=== PATIENT | female | born 1955 | race Caucasian/White ===

== ENCOUNTER 2021-07-26 13:58 | Emergency (ER) | payer OTHER, SELFPAY ==
[2021-07-26 14:06] VITALS: BP 131/87; PULSE 85; RESP 16; TEMP 36.6; O2SAT 99
--- NOTE | 2021-07-26 14:38 | ED.SKABFB ---
HPI - Skin/Abscess/Foreign Bdy General Chief complaint: Skin/Abscess/Foreign Body Stated complaint: INSECT BITE Source: patient and RN notes reviewed Mode of arrival: ambulatory History of Present Illness HPI narrative: This is a 66-year-old female who presented to urgent care with complaints of pain and redness to her right thigh status post insect bite. According to patient she or her pants this morning when she felt a possible insect bite to her right inner thigh. She immediately removed her pants but could not find a insect. She said at the site became swollen and reddened and hot to touch she did apply Neosporin and took a few amoxicillin that she had at home. The patient denies SOB, CP, palpitation, extremity numbness, lightheadedness, dizziness, constipation, diarrhea, chills, or fever. Related Data Allergies Allergy/AdvReac Type Severity Reaction Status Date / Time erythromycin base Allergy Mild Verified 02/03/17 06:56 Review of Systems Review of Systems: A 14 organ system Review of Systems was performed and pertinent positives included in the HPI, otherwise remaining ROS is negative. [facility] Family History Family History (Updated 07/26/21 @ 14:40 by CHARLOTTE Hopkins-C) Other Family history non-contributory Malignant neoplasm of prostate Exam Narrative: GENERAL: This is a well-nourished, well-developed patient, in no apparent distress. HEAD: normocephalic, atraumatic. EYES: PERRL. Sclera clear/white. Vision is grossly intact. EARS: External ears normal, auditory canals clear and without drainage, TMs normal without perforation. Hearing grossly intact. NOSE: External nose normal with no obvious nasal discharge, nares without redness, no rhinorrhea. THROAT: Mucous membranes moist, posterior pharynx clear. NECK: Neck supple, non-tender without lymphadenopathy, masses or thyromegaly. CARDIOVASCULAR: Regular rate and rhythm without murmurs, gallops, or rubs. RESPIRATORY: Clear to auscultation. Breath sounds equal bilaterally. No wheezes, rales, or rhonchi. GASTROINTESTINAL: Abdomen soft, non-tender, nondistended. Bowel sounds are active. No hepato-splenomegaly, or palpable masses. No guarding. SKIN: Right inner thigh edematous with erythema. No stinger found, warm to touch no discharge from site NEURO: awake, alert, and oriented to person, place and time. There were no obvious focal neurologic abnormalities. Steady gait EXTREMITIES: Normal range of motion. No edema. No calf tenderness. Negative Homans sign bilaterally. BACK: Nontender without deformity or crepitance. No flank tenderness. Course Course Emergency Course: Patient will discharge with doxycycline x7 days and prednisone Vital Signs Vital signs: Vital Signs Temperature 97.8 F 07/26/21 14:06 Pulse Rate 85 07/26/21 14:06 Respiratory Rate 16 07/26/21 14:06 Blood Pressure 131/87 07/26/21 14:06 Pulse Oximetry 99 07/26/21 14:06 Temperature 97.8 F 07/26/21 14:06 Pulse Rate 85 07/26/21 14:06 Respiratory Rate 16 07/26/21 14:06 Blood Pressure 131/87 07/26/21 14:06 Pulse Oximetry 99 07/26/21 14:06 MDM - Skin/Abscess/Foreign Bdy Differential Diagnosis Differential diagnosis: Likely abscess of skin or subcutaneous tissue, cellulitis, insect bites and contact dermatitis Discharge Plan Discharge Clinical Impression: Cellulitis Qualifiers: Site of cellulitis: extremity Site of cellulitis of extremity: lower extremity Laterality: right Qualified Code(s): L03.115 - Cellulitis of right lower limb Insect bites Qualifiers: Encounter type: initial encounter Site of insect bite: thigh Laterality: right Qualified Code(s): S70.361A - Insect bite (nonvenomous), right thigh, initial encounter Patient Disposition: Home, Self-Care Condition: Stable Instructions: Antibiotic Form, Cellulitis (ED), Insect Bite or Sting (ED) Additional Instructions: 1. Follow up with your provider within 1-2 weeks 2. Take prescription med
== END 2021-07-26 14:42 | disposition home or self-care (01) ==
PROVIDERS: Emergency Provider Nurse Practitioner
DX: L03.115 Cellulitis of right lower limb (principal); S70.361A Insect bite (nonvenomous), right thigh, initial encounter; W57.XXXA Bitten or stung by nonvenomous insect and other nonvenomous arthropods, initial encounter
CPT/HCPCS: 99203; G0463